=== PATIENT | male | born 1960 | race Caucasian/White ===

== ENCOUNTER 2017-01-13 12:19 | Emergency (ER) | payer MEDICARE, OTHER ==
[2017-01-13 12:20] VITALS: BMI 34.3
[2017-01-13 12:29] VITALS: TEMP 98.8
--- NOTE | 2017-01-13 13:27 | C.PDOC ---
History Of Present Illness A 56 year old male presents to the emergency room with complaints of a painful lesion on the foreskin of his penis for a few days. Patient has a history of Diabetes. Patient denies any recent unprotected sexual contacts. Patient denies any fever, back pain, vomiting, shortness of breath, dysuria, hematuria, frequency, incontinence, or any other complaints. Chief Complaint (Nursing): Male Genitourinary History Per: Patient History/Exam Limitations: no limitations Onset/Duration Of Symptoms: Days (3-4) Current Symptoms Are (Timing): Still Present Severity: Mild Quality Of Discomfort: "Pain" Associated Symptoms: denies: Fever, Vomiting, Back Pain, Urinary Symptoms Alleviating Factors: None Recent travel outside of the [place]: No Past Medical History Reviewed: Historical Data, Nursing Documentation, Vital Signs Vital Signs: Last Vital Signs Temp 98.8 F 01/13/17 12:27 Pulse 82 01/13/17 13:40 Resp 20 01/13/17 13:40 BP 130/70 01/13/17 13:40 Pulse Ox 94 L 01/13/17 15:33 - Medical History PMH: Asthma, CAD, Diabetes, HTN, Hypercholesterolemia, Sleep Apnea Denies: Chronic Kidney Disease Surgical History: Coronary Stent (x5) - [facility] Procedures CORONAR ARTERIOGR-2 CATH (11/08/02) LEFT HEART CARDIAC CATH (11/08/02) LT HEART ANGIOCARDIOGRAM (11/08/02) TETANUS TOXOID ADMINIST (02/23/15) Family History: States: Unknown Family Hx - Social History Hx Tobacco Use: Yes (smoke cessation counseling provided, see MDM) Hx Alcohol Use: No Hx Substance Use: No - Immunization History Hx Tetanus Toxoid Vaccination: Yes Hx Influenza Vaccination: No Hx Pneumococcal Vaccination: No Review Of Systems Except As Marked, All Systems Reviewed And Found Negative. Constitutional: Negative for: Fever Respiratory: Negative for: Shortness of Breath Gastrointestinal: Negative for: Vomiting Genitourinary: Positive for: Other (Painful skin lesion on foreskin of penis). Negative for: Dysuria, Frequency, Incontinence, Hematuria Musculoskeletal: Negative for: Back Pain Physical Exam - Physical Exam Appears: Well, Non-toxic Skin: Normal Color, Warm, Dry Head: Atraumatic, Normacephalic Eye(s): bilateral: Normal Inspection Cardiovascular: Rhythm Regular Respiratory: Normal Breath Sounds, No Rales, No Rhonchi, No Wheezing Gastrointestinal/Abdominal: Soft, No Tenderness Male Genital: No Circumcised, Other (Foreskin has mild swelling, erythema, and irritation. Phimosis.) Extremity: Normal ROM, No Tenderness Neurological/Psych: Oriented x3, Normal Speech ED Course And Treatment O2 Sat by Pulse Oximetry: 94 Progress Note: Prescribed Lotrimin. Patient had an elevated blood sugar. Patient is afebrile and in no acute distress. Instructed patient to see PMD to adjust diabetic medications and to follow up with a urologist within 1-2 days. Disposition - Disposition Referrals: Molly Stephens MD [Staff Provider] - Disposition: HOME/ ROUTINE Disposition Time: 13:34 Condition: STABLE Additional Instructions: Follow up with PMD and Urologist within 1-2 days. Return to ED if feel worse. Prescriptions: Clotrimazole 1% Cream [Lotrimin 1% CREAM] 1 applic TOP BID #45 g Instructions: Skin Yeast Infection (ED) - Clinical Impression Clinical Impression: Foreskin inflammation - Scribe Statement The provider has reviewed the documentation as recorded by the Katelyn Nair Provider Scribe Attestation: All medical record entries made by the Marcibe were at my direction and personally dictated by me. I have reviewed the chart and agree that the record accurately reflects my personal performance of the history, physical exam, medical decision making, and the department course for this patient. I have also personally directed, reviewed, and agree with the discharge instructions and disposition.
[2017-01-13 13:41] VITALS: BP 130/70; PULSE 82; RESP 20
[2017-01-13 14:50] VITALS: O2SAT 94
== END 2017-01-13 13:44 | disposition home or self-care (01) ==
LOC: C.ER 12:19
DX: N48.29 Other inflammatory disorders of penis (principal)

== ENCOUNTER 2017-05-03 09:02 | Emergency (ER) | payer MEDICARE, OTHER ==
[2017-05-03 09:02] VITALS: BMI 34.3
[2017-05-03] MEDS: Albuterol-Ipratrop 3 mg / 0.5 (3 ml) UD IH SCH ×3 (09:30→10:04)
[2017-05-03] MEDS ORDERED: Albuterol-Ipratrop 3 mg / 0.5 (3 ml) UD ONE (09:31)
[2017-05-03 10:15] VITALS: BP 135/83; PULSE 79; RESP 12; TEMP 98.1
[2017-05-03 10:22] VITALS: O2SAT 97
--- NOTE | 2017-05-03 10:22 | C.PDOC ---
History Of Present Illness 56 year old male presents to the ED with complaints of persistent cough for 2 weeks. Patient has a history of diabetes, CAD, recent stent in place, asthma, and is a smoker. He notes he has a cardiac catheterization scheduled for May 06 and is concerned about coughing during the procedure, prompting visit. Patient states he visited his doctor and was prescribed promethazine and amoxicillin with no improvement. He denies any fever, chills, or URI symptoms. Time Seen by Provider: 05/03/17 09:14 Chief Complaint (Nursing): Cough, Cold, Congestion History Per: Patient History/Exam Limitations: no limitations Onset/Duration Of Symptoms: Persistent (2 weeks ) Current Symptoms Are (Timing): Still Present Sick Contacts (Context): None Associated Symptoms: Cough, Other (throat and chest pain due to coughing ). denies: Fever, Chills, Nasal Congestion, Vomiting, Diarrhea Recent travel outside of the [place]: No Past Medical History Reviewed: Historical Data, Nursing Documentation, Vital Signs Vital Signs: Last Vital Signs Temp 98.1 F 05/03/17 10:14 Pulse 79 05/03/17 10:14 Resp 12 05/03/17 10:14 BP 135/83 05/03/17 10:14 Pulse Ox 97 05/03/17 10:56 - Medical History PMH: Asthma, CAD, Diabetes, HTN, Hypercholesterolemia, Sleep Apnea Surgical History: Coronary Stent (x5) - [facility] Procedures CORONAR ARTERIOGR-2 CATH (11/08/02) LEFT HEART CARDIAC CATH (11/08/02) LT HEART ANGIOCARDIOGRAM (11/08/02) TETANUS TOXOID ADMINIST (02/23/15) Family History: States: Unknown Family Hx - Social History Hx Tobacco Use: Yes (smoke cessation counseling provided, see MDM) Hx Alcohol Use: No Hx Substance Use: No - Immunization History Hx Tetanus Toxoid Vaccination: Yes Hx Influenza Vaccination: No Hx Pneumococcal Vaccination: No Review Of Systems Constitutional: Negative for: Fever, Chills ENT: Positive for: Throat Pain (throat pain from cough ). Negative for: Nose Discharge Cardiovascular: Positive for: Chest Pain (chest pain from excessive cough ). Negative for: Palpitations Respiratory: Positive for: Cough. Negative for: Shortness of Breath Gastrointestinal: Negative for: Vomiting Neurological: Negative for: Headache Physical Exam - Physical Exam Appears: Non-toxic, No Acute Distress Skin: Warm, Dry Head: Atraumatic Eye(s): bilateral: Normal Inspection, PERRL, EOMI Oral Mucosa: Moist Throat: Normal, No Erythema, No Exudate Respiratory: No Rales, No Rhonchi, No Stridor, Wheezing (bilateral wheezing ) Gastrointestinal/Abdominal: Soft, No Tenderness, No Distention, No Guarding, No Rebound Extremity: Normal ROM, No Tenderness, Other (no pitting edema ) Neurological/Psych: Oriented x3 ED Course And Treatment O2 Sat by Pulse Oximetry: 97 (room air ) - Radiology CXR: Interpreted by Me, Viewed By Me CXR Interpretation: Yes: Other (no pulmonary congestion ) Medical Decision Making Medical Decision Making: Patient was given prednisone and albuterol nebulizer for asthma symptoms. Disposition Counseled Patient/Family Regarding: Studies Performed, Diagnosis, Need For Followup, Rx Given - Disposition Disposition: HOME/ ROUTINE Disposition Time: 11:02 Condition: IMPROVED Additional Instructions: Follow up with your doctor. Use nebulizers 2-3 times a day. Take Prednisone 60 mg once a day for 4 days. Return to the Emergency Department with any further complaints. Prescriptions: Albuterol 0.083% [Albuterol 0.083% Inhal Yamilex (2.5 mg/3 ml) UD] 2.5 mg IH TID # 24 neb Prednisone [Deltasone] 60 mg PO DAILY #12 tablet Instructions: Acute Bronchitis (ED) Forms: General Discharge Instructions - POA Present On Arrival: None - Clinical Impression Clinical Impression: Bronchitis - Scribe Statement The provider has reviewed the documentation as recorded by the Marciblaw Cotto All medical record entries made by the Marciblaw were at my direction and personally dictated by me. I have reviewed the chart and agree that the record accurately reflects my personal performance of the history, physical exam, medical decision making, and the department course for this patient. I have also personally directed, reviewed, and agree with the discharge instructions and disposition.
--- NOTE | 2017-05-03 11:27 | RAD ---
HISTORY: SOB COMPARISON: Comparison is made to 01/24/2013 TECHNIQUE: Chest PA and lateral FINDINGS: LUNGS: No evidence of new infiltrate or consolidation in the lungs. PLEURA: No significant pleural effusion identified. No pneumothorax apparent. CARDIOVASCULAR: Normal. OSSEOUS STRUCTURES: No significant abnormalities. VISUALIZED UPPER ABDOMEN: Normal. OTHER FINDINGS: None. IMPRESSION: No active disease.
== END 2017-05-03 11:11 | disposition home or self-care (01) ==
LOC: C.ER 09:02
DX: J40 Bronchitis, not specified as acute or chronic (principal)